=== PATIENT | male | born 1955 | race Caucasian/White ===

== ENCOUNTER → 2018-03-09 | Outpatient (CLI) | payer BC ==
[~2018-03-09] MED LIST: BARIUM SUSPENSION 2.1% (VANILLA SILQ) 450 ML PO ONE; CATHETER FLUSH 10 ML SYR IV PRN; IOHEXOL 350 MG/ML 100 ML (OMNIPAQUE 350) VIAL IV ONE; NS 250 ML (IVPB) BAG IV ONE
--- NOTE | 2018-03-09 12:40 | Diagnostic Imaging Report ---
PROCEDURE: CT abdomen and pelvis with contrast. TECHNIQUE: Multiple contiguous axial images were obtained through the abdomen and pelvis after administration of intravenous contrast. INDICATION: Prostate carcinoma. No prior studies are available for comparison. The lung bases show are clear apart from a granuloma left lower lobe. Liver does show some generalized low density consistent with hepatic steatosis. No discrete liver mass is identified. The gallbladder is surgically absent. The pancreas and spleen are unremarkable. No adrenal mass is identified. The kidneys are unremarkable. Aorta is nonaneurysmal. No central retroperitoneal or mesenteric lymphadenopathy is seen. The small and large bowel loops are normal caliber. No obstruction is seen. There is no ascites. No iliac or inguinal lymphadenopathy is detected. The bladder is unremarkable. Prostate is enlarged. The bony structures are nonacute. No osteoblastic lesions are identified. IMPRESSION: 1. Hepatic steatosis. 2. No abdominal or pelvic lymphadenopathy or evidence of metastatic disease. 3. Prostatomegaly. Dictated by: Dictated on workstation # [id number]
--- NOTE | 2018-03-09 14:46 | Diagnostic Imaging Report ---
INDICATION: Newly diagnosed prostate carcinoma. TECHNIQUE: Patient was administered 27 mCi technetium 99m MDP intravenously and whole body imaging was performed after a three-hour delay. COMPARISON: No prior bone scans are available for comparison. FINDINGS: There is normal uptake of activity by the axial and appendicular skeleton. There is uptake by both kidneys with excretion into the urinary bladder. No abnormal foci of tracer accumulation are seen to suggest osseous metastatic disease. There are some degenerative foci in the upper cervical spine. There is also probable degenerative focus of lower lumbar spine. IMPRESSION: Degenerative changes. There is no scintigraphic evidence of osseous metastatic disease. Dictated by: Dictated on workstation # [id number]
== END ==
LOC: RAD 10:35
PROVIDERS: ATTEND Urology
DX: C61 Malignant neoplasm of prostate (principal); K76.0 Fatty (change of) liver, not elsewhere classified
CPT/HCPCS: 74177; 78306

== ENCOUNTER 2019-11-02 11:53 | Day surgery (SDC) | payer MEDICARE, OTHER ==
[~2019-11-02] VITALS: Ht 177.8 cm; Wt 92.1 kg
[2019-11-02] VITALS (11 sets, daily range): BP systolic 126–181; BP diastolic 82–121
[2019-11-02] MEDS ORDERED: NS IV 500 ML 500 ML IV ONE (12:06)
[2019-11-02] MEDS ORDERED: PANTOPRAZOLE 40 MG (PROTONIX) VIAL IV ONE (12:15)
[2019-11-02 12:24] LABS: BASOPHILS % (AUTO) 0 % (0-10); EOSINOPHILS # (AUTO) 0.1 10^3/uL (0.0-0.3); EOSINOPHILS % (AUTO) 2 % (0-10); HEMATOCRIT 48 % (40-54); HEMOGLOBIN 16.2 G/DL (13.3-17.7); LYMPHOCYTES # (AUTO) 2.7 X 10^3 (1.0-4.0); LYMPHOCYTES % (AUTO) 33 % (12-44); MEAN CORPUSCULAR HEMOGLOBIN 31 PG (25-34); MEAN CORPUSCULAR HGB CONC 34 G/DL (32-36); MEAN CORPUSCULAR VOLUME 92 FL (80-99); MEAN PLATELET VOLUME 9.6 FL (7.4-10.4); MONOCYTES # (AUTO) 0.7 X 10^3 (0.0-1.0); MONOCYTES % (AUTO) 9 % (0-12); NEUTROPHILS # (AUTO) 4.7 X 10^3 (1.8-7.8); NEUTROPHILS % (AUTO) 57 % (42-75); PLATELET COUNT 328 10^3/uL (130-400); RED CELL DISTRIBUTION WIDTH 13.8 % (10.0-14.5); WHITE BLOOD COUNT 8.2 10^3/uL (4.3-11.0)
[2019-11-02] MEDS: NITROGLYCERIN 0.4 MG SL TABS BTL 25'S SL PRN ×2 (12:31→13:30)
--- NOTE | 2019-11-02 12:32 | ED Chest Pain ---
General Stated Complaint: CHEST PAIN,SOB BREATH,L ARM PAIN Source: patient, spouse Exam Limitations: no limitations History of Present Illness Date Seen by Provider: Nov 02, 2019 Time Seen by Provider: 11:53 Initial Comments Patient presents ER by private conveyance from home with chief complaint of chest pain starting just within the last hour. He says he was sitting in bed having a good day drinking coffee and he got choked on the coffee had a coughing fit and passed out momentarily. He says this happened once before but has never EGD with strictures. He is not having chest pain across his chest radiating to her back sides in bilateral upper extremities. He says he feels achy. He took 2 doses of 325 mg aspirin and then came to the ER. She has a history of prostatic cancer status post prostatectomy. He denies any fevers for severe. He rates his pain as an 8 out of 10. He is having no nausea or vomiting. Having normal stools. No diabetes and hyperlipidemia. Does have hypertension. Follow-up with a PERRY Dickinson as well as Dr Borges locally. Allergies and Home Medications Allergies Coded Allergies: No Allergy Information Available (Unverified , 10/30/14) Patient Home Medication List Home Medication List Reviewed: Yes Review of Systems Review of Systems Constitutional: No chills, No fever, No malaise EENTM: No Blurred Vision, No Double Vision Respiratory: Cough, Shortness of Air Cardiovascular: Chest Pain; Denies Irregular Heart Rate, Denies Lightheadedness Gastrointestinal: Denies Constipated, Denies Diarrhea, Denies Nausea Genitourinary: Denies Burning, Denies Discharge Musculoskeletal: No back pain, No joint pain Skin: No pruritus, No rash Psychiatric/Neurological: Denies Headache, Denies Numbness All Other Systems Reviewed Negative Unless Noted: Yes Past Dskygar-Sbpccl-Inbvzy Hx Patient Social History Alcohol Use: Denies Use Recreational Drug Use: Yes Drug of Choice: cannibus Smoking Status: Former Smoker Type Used: Cigarettes Former Smoker, Quit: Oct 13, 2014 Physical Exam Vital Signs Vital Signs - First Documented Capillary Refill : Height, Weight, BMI Height: '" Weight: lbs. oz. kg; BMI Method: General Appearance: WD/WN, Anxious, Mild Distress HEENT: PERRL/EOMI, Pharynx Normal, Moist Mucous Membranes Neck: Full Range of Motion, Normal Inspection, Non Tender, Supple Respiratory: No Chest Non Tender; Lungs Clear, No Accessory Muscle Use, No Respiratory Distress (O2 sats 93% at rest, snoozing), Other (Mild crackles heard on the right base on deep inspiration but not recurrent) Cardiovascular: Regular Rate, Rhythm, No Edema Gastrointestinal: Normal Bowel Sounds, Non Tender, Soft Extremity: Normal Capillary Refill, Normal Inspection Neurologic/Psychiatric: Alert, Oriented x3, No Motor/Sensory Deficits Skin: Normal Color, Warm/Dry Progress/Results/Core Measures Results/Orders Lab Results Laboratory Tests Test 11/02/19 12:13 11/02/19 14:45 Range/Units White Blood Count 8.2 4.3-11.0 10^3/uL Red Blood Count 5.18 4.35-5.85 10^6/uL Hemoglobin 16.2 13.3-17.7 G/DL Hematocrit 48 40-54 % Mean Corpuscular Volume 92 80-99 FL Mean Corpuscular Hemoglobin 31 25-34 PG Mean Corpuscular Hemoglobin Concent 34 32-36 G/DL Red Cell Distribution Width 13.8 10.0-14.5 % Platelet Count 328 130-400 10^3/uL Mean Platelet Volume 9.6 7.4-10.4 FL Neutrophils (%) (Auto) 57 42-75 % Lymphocytes (%) (Auto) 33 12-44 % Monocytes (%) (Auto) 9 0-12 % Eosinophils (%) (Auto) 2 0-10 % Basophils (%) (Auto) 0 0-10 % Neutrophils # (Auto) 4.7 1.8-7.8 X 10^3 Lymphocytes # (Auto) 2.7 1.0-4.0 X 10^3 Monocytes # (Auto) 0.7 0.0-1.0 X 10^3 Eosinophils # (Auto) 0.1 0.0-0.3 10^3/uL Basophils # (Auto) 0.0 0.0-0.1 10^3/uL Prothrombin Time 12.9 12.2-14.7 SEC INR Comment 0.9 0.8-1.4 Activated Partial Thromboplast Time 31 24-35 SEC Sodium Level 145 135-145 MMOL/L Potassium Level 4.1 3.6-5.0 MMOL/L Chloride Level 108 H 98-107 MMOL/L Carbon Dioxide Level 25 21-32 MMOL/L Anion Gap 12 5-14 MMOL/L Blood Urea Nitrogen 14 7-18 MG/DL Creatinine 0.91 0.60-1.30 MG/DL Estimat Glomerular Filtration Rate > 60 BUN/Creatinine Ratio 15 Glucose Level 108 H 70-105 MG/DL Calcium Level 9.1 8.5-10.1 MG/DL Corrected Calcium 8.8 8.5-10.1 MG/DL Magnesium Level 2.1 1.6-2.4 MG/DL Total Bilirubin 0.8 0.1-1.0 MG/DL Aspartate Amino Transf (AST/SGOT) 24 5-34 U/L Alanine Aminotransferase (ALT/SGPT) 35 0-55 U/L Alkaline Phosphatase 106 40-136 U/L Myoglobin 57.7 10.0-92.0 NG/ML Troponin I < 0.028 0.238 H <0.028 NG/ML B-Type Natriuretic Peptide 50.7 <100.0 PG/ML Total Protein 6.8 6.4-8.2 GM/DL Albumin 4.4 3.2-4.5 GM/DL My Orders Orders - BRITTNEY,MIKKI J Cbc With Automated Diff (11/02/19 12:06) Magnesium (11/02/19 12:06) Chest 1 View, Ap/Pa Only (11/02/19 12:06) Ekg Tracing (11/02/19 12:06) Comprehensive Metabolic Panel (11/02/19 12:06) Myoglobin Serum (11/02/19 12:06) Protime With Inr (11/02/19 12:06) Partial Thromboplastin Time (11/02/19 12:06) O2 (11/02/19 12:06) Monitor-Rhythm Ecg Trace Only (11/02/19 12:06) Lipid Panel (11/03/19 06:00) Ed Iv/Invasive Line Start (11/02/19 12:06) BNP (11/02/19 12:06) Troponin I (11/02/19 12:06) Nitroglycerin 0.4 Mg Btl 25's (Nitrostat (11/02/19 12:15) Pantoprazole Injection (Protonix Injecti (11/02/19 12:15) Ed Iv/Invasive Line Start (11/02/19 12:06) Ns Iv 500 Ml (Sodium Chloride 0.9%) (11/02/19 12:06) Troponin I (11/02/19 14:45) Ekg Tracing (11/02/19 13:26) Medications Given in ED Current Medications Medications Dose Ordered Sig/Shadi Route Start Time Stop Time Status Last Admin Dose Admin Nitroglycerin 0.4 mg NEEDED PRN SL 11/02/19 12:15 11/02/19 13:30 0.4 MG Pantoprazole 40 mg ONCE ONCE IV 11/02/19 12:15 11/02/19 12:16 DC 11/02/19 12:31 40 MG Sodium Chloride 500 ml @ 0 mls/hr Q0M ONCE IV 11/02/19 12:06 11/02/19 12:09 DC 11/02/19 12:31 0 MLS/HR Vital Signs/I&O 11/02/19 11/02/19 11:55 11:55 Temp 36.6 Pulse 69 Resp 17 B/P (MAP) 185/115 (138) Pulse Ox 97 O2 Delivery Room Air Room Air Progress Progress Note #1: Time: 12:49 Progress Note Patient was doing fine until he had a choking event which resulted in brief syncope. Vasovagal is very possible. He does have borderline ST elevation one half to one block to 3 and aVF with uncertain significance. No previous EKGs to compare to. No history of coronary disease. He does have diffuse chest pain radiating however reproducible. We did give him nitroglycerin times one and his pain from 8 down to a 5. Is not requesting anything more. He took 2 doses of asp irin prior to arrival. On the monitor without any dysrhythmias. His oxygen sats as she rests. His history of COPD this is likely his baseline. Suspect the initial crackles auscultated is related to atelectasis. Progress Note #2: Time: 13:48 Progress Note Called and discussed the case with Dr. Pelaez and he feels that syncope and chest pain is ominous and recommends observation. He would like serial troponins. He would see the patient. We discussed this case with patient and the patient does not eat here Monday. The chest pain-free at this time. Patient advised her to follow up outpatient. Explaining that there would be risks involved and this including missing a significant coronary or heart events. Patient accepts this risk and would still prefer to go home. He is agreed to wait for a delta troponin at 3 hours and as long she is not having chest pain we will provide for him follow-up in the clinic. We explained that this would be contrary to the musical instrument maker or repairer's advice. Patient accepts this. The first dose of nitroglycerin nearly that his pain. The second dose of nitroglycerin brought his pain down to 110. Could be due to coronary versus esophageal spasm. Initial ECG Impression Date: Nov 02, 2019 Initial ECG Impression Time: 12:16 Initial ECG Rate: 78 Initial ECG Rhythm: Normal Sinus Initial ECG Intervals: QT (493) Initial ECG Impression: Normal, Nonspecific Changes Initial ECG Comparisson: No Previous ECG Available Comment Borderline half to one block elevation in the ST-T wave segments in leads 2, aVF and 3. Diagnostic Imaging Diagonstic Imaging: Xray Plain Films/CT/US/NM/MRI: chest (1v) Comments NAME: [facility]IN[facility] REC#: [id number] PT STATUS: REG ER : 1955 PHYSICIAN: MIKKI LUGO MD ADMIT DATE: 11/02/19/ER Draft Date of Exam:11/02/19 CHEST 1 VIEW, AP/PA ONLY EXAM: CHEST 1 VIEW, AP/PA ONLY INDICATION: Chest pain. COMPARISON: CT chest with IV contrast 10/30/2014. FINDINGS: Normal heart size and central pulmonary vascularity. Mild bibasilar atelectasis. No dense pulmonary consolidation. No pleural effusion or pneumothorax. No acute osseous findings. IMPRESSION: Mild bibasilar atelectasis. Chest otherwise negative. Dictated on workstation # [id number] Dict: 11/02/19 1250 Trans: 11/02/19 1252 [facility] [id number] Interpreted by: MIKE LARIOS MD Electronically signed by: Reviewed: Reviewed by Me Departure Communication (Admissions) Time/Spoke to Admitting Phy: 16:00 Dr Tillman accepts the pt to the Cardiac stepdown. Time/Spoke to Consulting Phy: 14:[address] Pelaez and he accepts consult Impression Primary Impression: Syncope Qualified Codes: R55 - Syncope and collapse Additional Impressions: Choking episode Chest pain at rest Disposition: 01 HOME, SELF-CARE Condition: Stable Admissions Decision to Admit Reason: Admit from ER (General) Decision to Admit/Date: Nov 02, 2019 Time/Decision to Admit Time: 14:00 Departure-Patient Inst. Referrals: RACHEL PELAEZ MD, RACHEL L MD (PCP/Family) Primary Care Physician Patient Instructions: Chest Pain (DC) Add. Discharge Instructions: If you begin to experience worsening chest pain or shortness of air. Do not delay. Call 911 or immediately return to the nearest ER. Stick to a liquid or soft diet for the first day and then increase that as you tolerate it. If you continue to have choking episodes then we would encourage you to return to the ER or follow up with the primary doctor. Monday morning call Dr. Pelaez, musical instrument maker or repairer for close follow-up within the first 1-2 days. Consider taking 1 aspirin daily until you've discussed this with IV your primary doctor or musical instrument maker or repairer. Copy Copies To 1: RAHCEL PELAEZ MD, TITUS J Nov 02, 2019 12:32
[2019-11-02 12:37] LABS: INR 0.9 (0.8-1.4); PROTHROMBIN TIME PATIENT 12.9 SEC (12.2-14.7)
[2019-11-02 12:50] LABS: ALANINE AMINOTRANSFERASE 35 U/L (0-55); ALBUMIN 4.4 GM/DL (3.2-4.5); ALKALINE PHOSPHATASE 106 U/L (40-136); BILIRUBIN,TOTAL 0.8 MG/DL (0.1-1.0); BUN/CREATININE RATIO 15; CALCIUM 9.1 MG/DL (8.5-10.1); CARBON DIOXIDE 25 MMOL/L (21-32); CHLORIDE 108 MMOL/L (98-107); CREATININE SERUM 0.91 MG/DL (0.60-1.30); GFR ESTIMATED > 60; GLUCOSE 108 MG/DL (70-105); MAGNESIUM 2.1 MG/DL (1.6-2.4); POTASSIUM 4.1 MMOL/L (3.6-5.0); SODIUM 145 MMOL/L (135-145); TOTAL PROTEIN 6.8 GM/DL (6.4-8.2)
--- NOTE | 2019-11-02 12:53 | Diagnostic Imaging Report ---
EXAM: CHEST 1 VIEW, AP/PA ONLY INDICATION: Chest pain. COMPARISON: CT chest with IV contrast 10/30/2014. FINDINGS: Normal heart size and central pulmonary vascularity. Mild bibasilar atelectasis. No dense pulmonary consolidation. No pleural effusion or pneumothorax. No acute osseous findings. IMPRESSION: Mild bibasilar atelectasis. Chest otherwise negative. Dictated by: Dictated on workstation # [id number]
--- NOTE | 2019-11-02 13:40 | NUR ---
CARE ASSUMED AT THIS TIME.
--- NOTE | 2019-11-02 13:54 | NUR ---
PT RESTING QUIETLY, NO C/O VOICED AT THIS TIME.
--- NOTE | 2019-11-02 15:46 | NUR ---
PT UPDATED BY THIS RN THAT LAB RESULTS WERE IN ET DR LUGO WOULD BE IN TO TALK W/ HIM SHORTLY. PT VOICED UNDERSTANDING
--- NOTE | 2019-11-02 15:50 | NUR ---
DR LUGO IN TO TALK W/ PT
--- NOTE | 2019-11-02 15:58 | NUR ---
PT VOICED TO THIS RN HE WILL STAY IN THE HOSPITAL AT THIS TIME BUT STATES "I'VE HAD A GOOD LIFE, I'M OK WITH GOING HOME AND DYING."
--- NOTE | 2019-11-02 16:15 | NUR ---
REPORT TO MINH SIEGEL
[2019-11-02] MEDS ORDERED: meTOprolol 5 MG/5 ML (LOPRESSOR) VIAL IV ONE (18:00)
[2019-11-02] MEDS ORDERED: NS IV 1000 ML 1,000 ML IV SCH (18:00)
--- NOTE | 2019-11-02 18:02 | Consultation-Cardiology ---
HPI-Cardiology Cardiology Consultation Date of Consultation 11/02/19 Date of Admission Time Seen by Provider: 17:58 Indication: Syncope HPI 64-year-old gentleman with history of hypertension, was drinking coffee this morning when he choked on the coffee then had a syncopal episode lasted for few seconds and regained consciousness, patient reported having diffuse body ache and chest pain, back pain, left shoulder left arm pain. Came into the emergency room for evaluation and was feeling better then. EKG showed minimal nondiagnostic changes, cardiac enzymes were initially normal, second set was elevated. He denied any previous cardiac history, currently laying down in bed, denied any active pain. Blood pressure is elevated. Reported that he had labile blood pressure during his prostate surgery in the past. Home Medications & Allergies Allergies: Coded Allergies: No Allergy Information Available (Unverified , 10/30/14) Home Medication List Reviewed: Yes UVQ-Qehbnp-Axoldn Hx Patient Social History Marital Status: Employed/Student: employed Alcohol Use: Denies Use Recreational Drug Use: Yes Drug of Choice: cannibus Smoking Status: Former Smoker Type Used: Cigarettes Recent Foreign Travel: No Recent Infectious Disease Expo: No Recent Hopitalizations: No Immunizations Up To Date Tetanus Booster (TDap): Unknown Past Medical History Discussed below Family Medical History Family Medical Hx Noncontributory Review of Systems-General Review of Systems Constitutional: see HPI; No chills; dizziness; No fever, No malaise EENTM: see HPI Respiratory: see HPI; No cough; dyspnea on exertion; No hemoptysis, No orthopnea, No phlegm, No short of breath, No stridor, No wheezing, No other Cardiovascular: see HPI, chest pain; No edema, No Hx of Intervention, No palpitations; syncope; No vascular heart diseas, No other Gastrointestinal: no symptoms reported, see HPI Genitourinary: see HPI Musculoskeletal: no symptoms reported, see HPI; No back pain, No joint pain Skin: see HPI; No pruritus, No rash Psychiatric/Neurological: No Symptoms Reported, See HPI; Denies Headache, Denies Numbness All Other Systems Reviewed Negative Unless Noted: Yes Reviewed Test Results Reviewed Test Results Lab Laboratory Tests Test 11/02/19 12:13 11/02/19 14:45 Range/Units White Blood Count 8.2 4.3-11.0 10^3/uL Red Blood Count 5.18 4.35-5.85 10^6/uL Hemoglobin 16.2 13.3-17.7 G/DL Hematocrit 48 40-54 % Mean Corpuscular Volume 92 80-99 FL Mean Corpuscular Hemoglobin 31 25-34 PG Mean Corpuscular Hemoglobin Concent 34 32-36 G/DL Red Cell Distribution Width 13.8 10.0-14.5 % Platelet Count 328 130-400 10^3/uL Mean Platelet Volume 9.6 7.4-10.4 FL Neutrophils (%) (Auto) 57 42-75 % Lymphocytes (%) (Auto) 33 12-44 % Monocytes (%) (Auto) 9 0-12 % Eosinophils (%) (Auto) 2 0-10 % Basophils (%) (Auto) 0 0-10 % Neutrophils # (Auto) 4.7 1.8-7.8 X 10^3 Lymphocytes # (Auto) 2.7 1.0-4.0 X 10^3 Monocytes # (Auto) 0.7 0.0-1.0 X 10^3 Eosinophils # (Auto) 0.1 0.0-0.3 10^3/uL Basophils # (Auto) 0.0 0.0-0.1 10^3/uL Prothrombin Time 12.9 12.2-14.7 SEC INR Comment 0.9 0.8-1.4 Activated Partial Thromboplast Time 31 24-35 SEC Sodium Level 145 135-145 MMOL/L Potassium Level 4.1 3.6-5.0 MMOL/L Chloride Level 108 H 98-107 MMOL/L Carbon Dioxide Level 25 21-32 MMOL/L Anion Gap 12 5-14 MMOL/L Blood Urea Nitrogen 14 7-18 MG/DL Creatinine 0.91 0.60-1.30 MG/DL Estimat Glomerular Filtration Rate > 60 BUN/Creatinine Ratio 15 Glucose Level 108 H 70-105 MG/DL Calcium Level 9.1 8.5-10.1 MG/DL Corrected Calcium 8.8 8.5-10.1 MG/DL Magnesium Level 2.1 1.6-2.4 MG/DL Total Bilirubin 0.8 0.1-1.0 MG/DL Aspartate Amino Transf (AST/SGOT) 24 5-34 U/L Alanine Aminotransferase (ALT/SGPT) 35 0-55 U/L Alkaline Phosphatase 106 40-136 U/L Myoglobin 57.7 10.0-92.0 NG/ML Troponin I < 0.028 0.238 H <0.028 NG/ML B-Type Natriuretic Peptide 50.7 <100.0 PG/ML Total Protein 6.8 6.4-8.2 GM/DL Albumin 4.4 3.2-4.5 GM/DL Physical Exam Physical Exam Vital Signs Vital Signs - First Documented Capillary Refill : Less Than 3 Seconds Height, Weight, BMI Height: '" Weight: lbs. oz. kg; 27.99 BMI Method: General Appearance: WD/WN, Anxious, Mild Distress Eyes: Bilateral Eye Normal Inspection, Bilateral Eye PERRL, Bilateral Eye EOMI HEENT: PERRL/EOMI, Pharynx Normal, Moist Mucous Membranes Neck: Full Range of Motion, Normal Inspection, Non Tender, Supple Respiratory: No Chest Non Tender; Lungs Clear, No Accessory Muscle Use, No Respiratory Distress (O2 sats 93% at rest, snoozing), Other (Mild crackles heard on the right base on deep inspiration but not recurrent) Cardiovascular: Regular Rate, Rhythm, No Edema Gastrointestinal: Normal Bowel Sounds, Non Tender, Soft Back: Normal Inspection, No CVA Tenderness, No Vertebral Tenderness Extremity: Normal Capillary Refill, Normal Inspection Neurologic/Psychiatric: Alert, Oriented x3, No Motor/Sensory Deficits Skin: Normal Color, Warm/Dry Lymphatic: No Adenopathy A/P-Cardiology Admission Diagnosis Non-ST elevation myocardial infarction Syncope Malignant Hypertension Emphysema Assessment/Plan Non-ST elevation myocardial infarction, elevated troponin level, planning to proceed with cardiac catheterization possible PTCA, procedure was explained in length to the patient on Pros and cons were discussed. Syncope, probably vasovagal, underlying malignant arrhythmia cannot be excluded, we will continue to monitor on telemetry. Hypertension, labile blood pressure, elevated at this time, I'll start Lopressor IV then start oral beta blockers and monitor COPD/emphysema, managed by primary care physician Tobaccoism, stopped smoking about 5 years ago, encouraged to continue with smoking cessation History of prostate surgery. Clinical Quality Measures AMI/AHF: ASA po Prior to arrival: No DVT/VTE Risk/Contraindication: Risk Factor Score Per Nursin RFS Level Per Nursing on Admit: 2=Moderate RACHEL HANSON MD Nov 02, 2019 18:02
--- NOTE | 2019-11-02 18:04 | Cardiac Procedure Note-CS/ASA ---
Pre-Procedure Note Pre-Op Procedure Note H&P Reviewed The H&P was reviewed, patient examined and no changes noted. Date H&P Reviewed: Nov 02, 2019 Time H&P Reviewed: 18:04 Conscious Sedation Pre-Proced Time 18:04 ASA Score 3 For ASA 3 and 4: Consider anesthesia and medical clearance. Also, for patients with a history of failed moderate sedation consider anesthesia. Airway Lungs Heart ASA score ASA 1: a normal healthy patient ASA 2: a patient with a mild systemic disease (mid diabetes, controlled hypertension, obesity x ASA 3: a patient with a severe systemic disease that limits activity (angina, COPD, prior Myocardial infarction) ASA 4: a patient with an incapacitating disease that is a constant threat to life (CHF, renal failure) ASA 5: a moribund patient not expected to survive 24 hrs. (ruptured aneurysm) ASA 6: a declared brain- patient whose organs are being harvested. For emergent operations, add the letter E after the classification Mallampati Classification Grade 3 Sedation Plan Analgesia, Amnesia, Plan communicated to team members, Discussed options with patient/fam, Discussed risks with patient/fam The patient is an appropriate candidate to undergo the planned procedure, sedation, and anesthesia. The patient immediately re-assessed prior to indication. RACHEL HANSON MD Nov 02, 2019 18:04
[2019-11-02] MEDS ORDERED: LIDOCAINE 1% INJ 20 ML 20 ML VIAL ONE (18:39)
[2019-11-02] MEDS ORDERED: HEParin (CATH LAB) 2,000 ML IV ONE (18:40)
[2019-11-02] MEDS ORDERED: VERAPAMIL 5 MG/2 ML (CALAN) VIAL IV ONE (18:40)
[2019-11-02] MEDS ORDERED: HEParin 1000 UNIT/ML (10ML VIAL) FOR BOLUS ONE (18:40)
[2019-11-02] MEDS ORDERED: fentaNYL INJECTION 100 MCG/2 ML AMP ONE (18:40)
[2019-11-02] MEDS ORDERED: NITRO DRIP 25000 MCG/D5W 250 ML IV ONE (18:40)
[2019-11-02] MEDS ORDERED: MIDAZOLAM 5 MG/5 ML (VERSED) VIAL ONE (18:40)
[2019-11-02] MEDS ORDERED: ATROPINE INJECTION 1 MG/10 ML SYR (ABBOTT) ONE (19:46)
[2019-11-02] MEDS ORDERED: ASPIRIN 325 MG (5 GR) TABLET ONE (19:52)
[2019-11-02] MEDS ORDERED: CLOPIDOGREL 300 MG (PLAVIX) TABLET PO ONE (19:53)
--- NOTE | 2019-11-02 20:10 | Cardiac Cath Report ---
Cardiac Cath Report Physician (s)/[facility] [place] (s) Physician RACHEL HANSON MD Pre-Procedure Diagnosis Pre-Procedure Diagnosis: coronary artery disease Post-Procedure Note Procedure Start Date: Nov 02, 2019 Name of Procedure: Left heart catheterization Left ventriculogram Stent to the right coronary artery Findings/Procedure Note PROCEDURE NOTE: 64 years old gentleman with no significant history, admitted with syncope and chest pain, had mildly elevated troponin and mild EKG changes. Decided to proceed with cardiac catheterization possible PTCA. After explaining the procedure to the patient, all pros and cons were explained, all questions were answered. The patient signed the consent and then he was placed on the cardiac catheterization laboratory. Groin was prepped SL fashion local anesthesia was used. Sheath placed in the right radial artery, Newport catheter used advanced to the left ventricular cavity and left ventricular gram was done. Pullback LV to aorta was done then engaged the left coronary system and angiogram was done. I was unable to engage the right coronary system due to the fact that it is anomalous. 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 Decided to proceed with proctitis intervention. Patient received a total of 7000 units of heparin, I used AL guide and was able to engage the right coronary artery but I did not have a full support from the guide I was able to advance the wire and once I achieved the lesion I was unable to cross it and kept losing the guide position after multiple attempts I decided to exchange the wire and the guide I removed the guide and used MP1 and used the same BMW wire I was able to engage in a better situation with that guide and was able to advance the wire smoothly to the distal right coronary artery predilated using 3 x 15 balloon then I proceeded with deployment of Liane 4 x 23 stent, dilated under 19 dragan to 4.3 with excellent results and no residual stenosis. At the end of the procedure the sheath was removed. 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 Tortuous LAD system with mild disease nonobstructive disease otherwise no significant obstructive disease 3. Normal left ventricular size and systolic function estimated ejection fraction 60 percent DISCUSSION AND RECOMMENDATION: Patient was started on aspirin and Plavix, Lipitor, metoprolol and fish oil. We will continue monitor overnight and discharged home in the morning Anesthesia Type: Conscious Sedation Estimated blood loss (mL): 30 ml Contrast Amount: 175 ml Total Radiation Dose: 1109 mGy Post-Procedure Diagnosis Post-operative diagnosis: Non-ST elevation myocardial infarctions Coronary artery disease Hypertension Hyperlipidemia RACHEL HANSON MD Nov 02, 2019 20:10
[2019-11-02] MEDS ORDERED: LORazepam INJ 2 MG/ML (ATIVAN) VIAL IV PRN (20:30)
[2019-11-02] MEDS ORDERED: ACETAMINOPHEN 325 MG TABLET PO PRN (20:30)
[2019-11-02] MEDS ORDERED: ANTACID SUSP 30 ML UDC (MYLANTA) PO PRN (20:30)
[2019-11-02] MEDS ORDERED: MILK OF MAGNESIA 400 MG/5 ML 30 ML UDC PO PRN (20:30)
[2019-11-02] MEDS ORDERED: BENZONATATE 100 MG (TESSALON) CAPSULE PO PRN (20:30)
[2019-11-02] MEDS ORDERED: morphine INJ 4 MG/ML 1 ML (VIAL/SYRINGE) IV PRN (20:30)
[2019-11-02] MEDS ORDERED: MELATONIN 3 MG TABLET PO PRN (20:30)
[2019-11-02] MEDS ORDERED: ONDANSETRON 4 MG/2 ML (SDV) Z0FRAN IV PRN (20:30)
[2019-11-02] MEDS: NS IV 1000 ML 1,000 ML IV SCH (20:42)
[2019-11-02] MEDS ORDERED: lisINopril 20 MG (PRINIVIL) TABLET PO ONE (22:30)
--- NOTE | 2019-11-02 22:30 | NUR ---
THIS RN NOTIFIED DR. HANSON OF PATIENT'S SBP RANGING IN 160-180'S AND DBP RANGING 100-120'S. MOST RECENT BP WAS 160/101. NEW ORDER RECEIVED FOR LISINOPRIL PO 20MG X1 NOW.
[2019-11-03] VITALS: BP 146/99
[2019-11-03 01:00] VITALS: BP 145/95
[2019-11-03 02:00] VITALS: BP 132/89
[2019-11-03 03:00] VITALS: BP 149/108
[2019-11-03 03:44] LABS: BASOPHILS % (AUTO) 0 % (0-10); EOSINOPHILS # (AUTO) 0.1 10^3/uL (0.0-0.3); EOSINOPHILS % (AUTO) 1 % (0-10); HEMATOCRIT 43 % (40-54); HEMOGLOBIN 14.8 G/DL (13.3-17.7); LYMPHOCYTES # (AUTO) 2.1 X 10^3 (1.0-4.0); LYMPHOCYTES % (AUTO) 22 % (12-44); MEAN CORPUSCULAR HEMOGLOBIN 32 PG (25-34); MEAN CORPUSCULAR HGB CONC 34 G/DL (32-36); MEAN CORPUSCULAR VOLUME 92 FL (80-99); MEAN PLATELET VOLUME 9.7 FL (7.4-10.4); MONOCYTES # (AUTO) 0.9 X 10^3 (0.0-1.0); MONOCYTES % (AUTO) 9 % (0-12); NEUTROPHILS # (AUTO) 6.3 X 10^3 (1.8-7.8); NEUTROPHILS % (AUTO) 67 % (42-75); PLATELET COUNT 279 10^3/uL (130-400); RED CELL DISTRIBUTION WIDTH 13.7 % (10.0-14.5); WHITE BLOOD COUNT 9.4 10^3/uL (4.3-11.0)
[2019-11-03 03:55] LABS: ALBUMIN 3.6 GM/DL (3.2-4.5); CHLORIDE 111 MMOL/L (98-107); POTASSIUM 3.9 MMOL/L (3.6-5.0); SODIUM 141 MMOL/L (135-145)
[2019-11-03 03:57] LABS: TOTAL PROTEIN 5.6 GM/DL (6.4-8.2); TRIGLYCERIDES 119 MG/DL (<150); VLDL CHOLESTEROL 24 MG/DL (5-40)
[2019-11-03 03:58] LABS: GLUCOSE 103 MG/DL (70-105)
[2019-11-03 03:59] LABS: BILIRUBIN,TOTAL 0.9 MG/DL (0.1-1.0); CARBON DIOXIDE 22 MMOL/L (21-32)
[2019-11-03 04:00] VITALS: BP 128/86
[2019-11-03 04:01] LABS: ALKALINE PHOSPHATASE 84 U/L (40-136); CREATININE SERUM 0.68 MG/DL (0.60-1.30); GFR ESTIMATED > 60; PHOSPHORUS 2.6 MG/DL (2.3-4.7)
[2019-11-03 04:02] LABS: BUN/CREATININE RATIO 16; CHOLESTEROL 137 MG/DL (< 200)
[2019-11-03 04:03] LABS: HDL CHOLESTEROL 32 MG/DL (40-60)
[2019-11-03 04:04] LABS: ALANINE AMINOTRANSFERASE 32 U/L (0-55); MAGNESIUM 1.9 MG/DL (1.6-2.4)
[2019-11-03] MEDS: NS IV 1000 ML 1,000 ML IV SCH (06:27)
[2019-11-03 08:00] VITALS: BP 133/90
[2019-11-03] MEDS ORDERED: OMEGA 3 (FISH OIL) 1000 MG CAP PO SCH (08:00)
[2019-11-03] MEDS ORDERED: CLOPIDOGREL 75 MG (PLAVIX) TABLET PO SCH (09:00)
[2019-11-03] MEDS ORDERED: ASPIRIN E.C. 81 MG (ECOTRIN) TAB PO SCH (09:00)
[2019-11-03] MEDS ORDERED: ASPI-983 PO (10:23)
[2019-11-03] MEDS ORDERED: CLOP75TA28 PO (10:23)
[2019-11-03] MEDS ORDERED: LISI-556 PO (10:23)
[2019-11-03] MEDS ORDERED: ATOR20TA66 PO (10:23)
[2019-11-03] MEDS ORDERED: MTP25TSR PO (10:23)
[2019-11-03] MEDS ORDERED: OMG1KC PO (10:23)
[2019-11-03] MEDS ORDERED: PANT40SU PO (10:24)
--- NOTE | 2019-11-03 10:24 | Discharge Inst-Post CATH ---
Discharge Inst-CATH/EP Problems Reviewed?: Yes Post Cardiac Cath/EP D/C Inst Follow Up/Plan Appointment with Dr. Pelaez's office in 2-4 weeks <b>CARDIAC CATH/EP PROCEDURE DISCHARGE INSTRUCTIONS</b> ACTIVITY * Go Home directly and rest. * Limit activity of the leg (or wrist if it was used) for 7 days including aerobics, swimming, jogging, bicycling, etc. * Restrict stair-climbing for 7 days if possible, if not, climb up with your non-cath leg, then bring together on the same step. * Avoid lifting, pushing, pulling or excessive movement of the affected extremity for 7 days. * Customary sexual activity may be resumed after 2 days-use caution not to use a position that strains or causes pain to the affected extremity. * No driving for 24 hours. * NO SMOKING. * Avoid straining for bowel movements for 7 days. * Gentle walking on level ground is allowed. * Returning to work will depend on the type of procedure and the results. Your doctor will discuss this with you. CALL YOUR DOCTOR FOR ANY OF THE FOLLOWING: *If bleeding from the puncture site occurs- Apply gentle pressure to site with clean cloth and call your doctor or EMS. * If a knot or lump forms under the skin, increases in size, or causes pain. * If bruising appears to be worsening or moving further down your leg instead of disappearing. * Temperature above 101 F. CARE OF YOUR GROIN INCISION; * Bruising or purple discoloration of the skin near the puncture site is common. * You may shower only, no bathtub bathing for 5 days. Be careful to avoid slipping as your leg may feel stiff. * If a closure device was used on your femoral artery, please see the attached guide regarding care of the device and your leg. * Leave dressing on FOR 24 hours. CARE OF YOUR WRIST INCISION; * Bruising or purple discoloration of the skin near the puncture site is common. * You may shower. * DO NOT submerge wrist. * Leave dressing on FOR 24 hours. RACHEL PELAEZ MD Nov 03, 2019 10:24 am
--- NOTE | 2019-11-03 10:27 | Cardiology Progress Note ---
Subjective Date Seen by Provider: Nov 03, 2019 Time Seen by Provider: 10:25 Subjective/Events-last exam Patient is feeling better, no further episodes of chest pain. Groin is healing well Review of Systems General: No Chills, No Night Sweats, No Fatigue, No Malaise, No Appetite, No Other HEENT: No Head Aches, No Visual Changes, No Eye Pain, No Ear Pain, No Dysphasi a, No Sinus Congestion, No Post Nasal Drip, No Sore Throat, No Other Pulmonary: No Dyspnea, No Cough, No Pleuritic Chest Pain, No Other Cardiovascular: No: Chest Pain, Palpitations, Orthopnea, Paroxysmal Noc. Dyspnea, Edema, Lt Headedness, Other Objective-Cardiology Exam Last Set of Vital Signs Vital Signs 11/03/19 08:20 Pulse Ox 97 O2 Delivery Room Air Capillary Refill : Less Than 3 Seconds I&O Intake and Output 11/03/19 00:00 Intake Total 900 ml Output Total 375 ml Balance 525 ml Intake Oral 400 ml IV Total 500 ml Output Urine Total 375 ml Daily Weight Change No No General: Alert, Oriented X3, Cooperative HEENT: Atraumatic, PERRLA Neck: Supple, No JVD, No Thyromegaly Lungs: Clear to Auscultation, Normal Air Movement Heart: Regular Rate, Normal S1, Normal S2, No Murmurs Abdomen: Normal Bowel Sounds, Soft, No Tenderness, No Hepatosplenomegaly, No M asses Extremities: No Clubbing, No Cyanosis, No Edema, Normal Pulses, No Tende rness/Swelling Skin: No Rashes, No Breakdown, No Significant Lesion Neuro: Normal Gait, Normal Speech, Strength at 5/5 X4 Ext, Normal Tone, Sensation Intact Psych/Mental Status: Mental Status NL, Mood NL Results Lab Laboratory Tests 11/02/19 12:13 11/03/19 03:36 A/P-Cardiology Admission Diagnosis Non-ST elevation myocardial infarction Syncope Malignant Hypertension Emphysema Assessment/Plan Non-ST elevation myocardial infarction, status post cardiac catheterization with complex intervention to the right coronary artery with deployment of Liane 4 x 23 extended to 4.3 mm with excellent results. Syncope, probably vasovagal, underlying malignant arrhythmia secondary to ischemia cannot be excluded, patient was started on beta blockers. Continue to monitor as an outpatient Hypertension, started on Toprol and lisinopril, monitor as an outpatient Mild hyperlipidemia, LDL 102, started on Lipitor 20 mg daily and fish oil. 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 Clinical Quality Measures AMI/AHF: ASA po Prior to arrival: No DVT/VTE Risk/Contraindication: Risk Factor Score Per Nursin RFS Level Per Nursing on Admit: 2=Moderate RACHEL HANSON MD Nov 03, 2019 10:27 am
--- NOTE | 2019-11-03 10:54 | Discharge Summary ---
Discharge Summary Hospital Course Was the Problem List Reviewed?: Yes Hospital Course Date of Admission: Nov 02, 2019 at 16:00 Admission Diagnosis : Family Physician/Provider: Ebonie Borges MD Date of Discharge: 11/03/19 Discharge Diagnosis: Syncope, NSTEMI with stent placement Hospital Course: see SS HPI Labs and Pending Lab Test: Laboratory Tests 11/02/19 12:13: White Blood Count 8.2, Red Blood Count 5.18, Hemoglobin 16.2, Hematocrit 48, Mean Corpuscular Volume 92, Mean Corpuscular Hemoglobin 31, Mean Corpuscular Hemoglobin Concent 34, Red Cell Distribution Width 13.8, Platelet Count 328, Mean Platelet Volume 9.6, Neutrophils (%) (Auto) 57, Lymphocytes (%) (Auto) 33, Monocytes (%) (Auto) 9, Eosinophils (%) (Auto) 2, Basophils (%) (Auto) 0, Neutrophils # (Auto) 4.7, Lymphocytes # (Auto) 2.7, Monocytes # (Auto) 0.7, Eosinophils # (Auto) 0.1, Basophils # (Auto) 0.0, Prothrombin Time 12.9, INR Comment 0.9, Activated Partial Thromboplast Time 31, Sodium Level 145, Potassium Level 4.1, Chloride Level 108H, Carbon Dioxide Level 25, Anion Gap 12, Blood Urea Nitrogen 14, Creatinine 0.91, Estimat Glomerular Filtration Rate > 60, BUN/Creatinine Ratio 15, Glucose Level 108H, Calcium Level 9.1, Corrected Calcium 8.8, Magnesium Level 2.1, Total Bilirubin 0.8, Aspartate Amino Transf (AST/SGOT) 24, Alanine Aminotransferase (ALT/SGPT) 35, Alkaline Phosphatase 106, Myoglobin 57.7, Troponin I < 0.028, B-Type Natriuretic Peptide 50.7, Total Protein 6.8, Albumin 4.4 11/02/19 14:45: Troponin I 0.238H 11/02/19 21:06: Troponin I 4.594*H 11/03/19 01:14: Troponin I 5.022*H 11/03/19 03:36: White Blood Count 9.4, Red Blood Count 4.66, Hemoglobin 14.8, Hematocrit 43, Mean Corpuscular Volume 92, Mean Corpuscular Hemoglobin 32, Mean Corpuscular Hemoglobin Concent 34, Red Cell Distribution Width 13.7, Platelet Count 279, Mean Platelet Volume 9.7, Neutrophils (%) (Auto) 67, Lymphocytes (%) (Auto) 22, Monocytes (%) (Auto) 9, Eosinophils (%) (Auto) 1, Basophils (%) (Auto) 0, Neutrophils # (Auto) 6.3, Lymphocytes # (Auto) 2.1, Monocytes # (Auto) 0.9, Eosinophils # (Auto) 0.1, Basophils # (Auto) 0.0, Sodium Level 141, Potassium Level 3.9, Chloride Level 111H, Carbon Dioxide Level 22, Anion Gap 8, Blood Urea Nitrogen 11, Creatinine 0.68, Estimat Glomerular Filtration Rate > 60, BUN/Creatinine Ratio 16, Glucose Level 103, Calcium Level 8.0L, Corrected Calcium 8.3L, Phosphorus Level 2.6, Magnesium Level 1.9, Total Bilirubin 0.9, Aspartate Amino Transf (AST/SGOT) 38H, Alanine Aminotransferase (ALT/SGPT) 32, Alkaline Phosphatase 84, Troponin I 4.321*H, Total Protein 5.6L, Albumin 3.6, Triglycerides Level 119, Cholesterol Level 137, LDL Cholesterol Direct 102, VLDL Cholesterol 24, HDL Cholesterol 32L Home Meds Active Protonix (Pantoprazole Sodium) 40 Mg Granpkt. 40 Mg PO DAILY Lisinopril 5 Mg Tablet 5 Mg PO DAILY Aspirin EC (Aspirin) 81 Mg Tablet.dr 81 Mg PO DAILY Metoprolol Succinate 25 Mg Tab.er.24h 25 Mg PO DAILY Fish Oil 1,000 mg Capsule ([place]prise 3 Polyunsat Fatty Acids) 1,000 Mg Cap 1,000 Mg PO BID WITH MEALS Atorvastatin Calcium 20 Mg Tablet 20 Mg PO HS Clopidogrel (Clopidogrel Bisulfate) 75 Mg Tablet 75 Mg PO DAILY Assessment/Pt Instructions DR Pelaez as ordered Discharge Planning: <30 minutes discharge planning Discharge Instructions Discharge Diet: Cardiac Diet Pneumonia Vaccine Order Indica: Yes Discharge Physical Examination Vital Signs Vital Signs Date Time Temp Pulse Resp B/P (MAP) Pulse Ox O2 Delivery O2 Flow Rate FiO2 11/03/19 08:20 97 Room Air 11/03/19 08:00 36.9 68 18 133/90 (104) General Appearance: No Apparent Distress, WD/WN Allergies: Coded Allergies: No Allergy Information Available (Unverified , 10/30/14) Discharge Summary Date of Admission Nov 02, 2019 at 16:00 Date of Discharge Discharge Date: Nov 03, 2019 Clinical Quality Measures AMI/AHF: ASA po Prior to arrival: No DVT/VTE Risk/Contraindication: Risk Factor Score Per Nursin RFS Level Per Nursing on Admit: 2=Moderate TY LUIS DO Nov 03, 2019 10:54
--- NOTE | 2019-11-03 16:29 | Short Stay Summary-Hospitalist ---
History of Present Illness HPI/Chief Complaint CC: Syncope with NSTEMI s/p stent placement per Dr Pelaez 11/02/19 HPI: This is a 64yoWM clinic patient of Dr Borges and [facility] who presented to the ER with syncope and collapse after drinking coffee. Patient was found to have elevated troponin so Dr Pelaez assessed the patient in need of cardiac cath and subsequent placed stent due to coronary stenosis. Patient is currently ready for DC. Source: patient, RN/MD Exam Limitations: no limitations Date Seen 11/03/19 Time Seen by a Provider: 10:00 Attending Physician Alisha Tillman MD PCP Ebonie Borges MD Referring Physician Date of Admission Nov 02, 2019 at 16:00 Home Medications & Allergies Home Medications Reviewed patient Home Medication Reconciliation performed by pharmacy medication reconciliations photovoltaic testing technician and/or nursing. Patients Allergies have been reviewed. Allergies Allergies Coded Allergies No Allergy Information Available (Unverified10/30/14) Past Sakjcbp-Dllird-Tqsdzp Hx Past Med/Social Hx: Reviewed Nursing Past Med/Soc Hx, Reviewed and Corrections made Patient Social History Marrital Status: Employed/Student: employed Alcohol Use: Denies Use Recreational Drug Use: Yes Drug of Choice: cannibus Smoking Status: Former Smoker Former Smoker, Quit: Oct 13, 2014 Type Used: Cigarettes Recent Foreign Travel: No Contact w/other who traveled: No Recent Hopitalizations: No Recent Infectious Disease Expo: No Immunizations Up To Date Tetanus Booster (TDap): Unknown Pediatric: Yes Seasonal Allergies Seasonal Allergies: No Past Medical History Surgeries: Gallbladder, Prostatectomy Genitourinary: Prostate Problems Cancer: Prostate What Type of Treatment Did You: Surgical Intervention History of Blood Disorders: No Review of Systems Constitutional: see HPI, malaise, weakness Cardiovascular: chest pain Physical Exam Physical Exam Vital Signs Vital Signs - First Documented Capillary Refill : Less Than 3 Seconds Height, Weight, BMI Height: '" Weight: lbs. oz. kg; 27.99 BMI Method: General Appearance: WD/WN, Anxious, Mild Distress Eyes: Bilateral Eye Normal Inspection, Bilateral Eye PERRL, Bilateral Eye EOMI HEENT: PERRL/EOMI, Pharynx Normal, Moist Mucous Membranes Neck: Full Range of Motion, Normal Inspection, Non Tender, Supple Respiratory: No Chest Non Tender; Lungs Clear, No Accessory Muscle Use, No Respiratory Distress (O2 sats 93% at rest, snoozing), Other (Mild crackles heard on the right base on deep inspiration but not recurrent) Cardiovascular: Regular Rate, Rhythm, No Edema Gastrointestinal: Normal Bowel Sounds, Non Tender, Soft Back: Normal Inspection, No CVA Tenderness, No Vertebral Tenderness Extremity: Normal Capillary Refill, Normal Inspection Neurologic/Psychiatric: Alert, Oriented x3, No Motor/Sensory Deficits Skin: Normal Color, Warm/Dry Lymphatic: No Adenopathy Results Results/Procedures Labs Laboratory Tests 11/02/19 12:13 11/03/19 03:36 Patient resulted labs reviewed. Short Stay Diagnosis Discharge Diagnosis-Short Stay Admission Diagnosis Syncope Final Discharge Diagnosis Syncope NSTEMI requiring cath and stent placement Prostate cancer hx s/p prostatectomy Conclusion Plan Plan: DC home Diagnosis/Problems Diagnosis/Problems (1) NSTEMI (non-ST elevated myocardial infarction) (2) Stented coronary artery (3) Syncope Status: Acute Qualifiers: Qualified Codes: R55 - Syncope and collapse (4) Choking episode Status: Acute Clinical Quality Measures AMI/AHF: ASA po Prior to arrival: No DVT/VTE Risk/Contraindication: Risk Factor Score Per Nursin RFS Level Per Nursing on Admit: 2=Moderate TY LUIS DO Nov 03, 2019 16:29
== END 2019-11-03 11:30 | disposition home or self-care (01) ==
LOC: EDUNIT# 11:53 → ER 11:54 → CSD 16:00 → UNDOADMOB 16:00 → CSD 17:20 → CATH 17:20 → CSD 18:27 → UNDODISOB 11-03 11:30 → CATH 11-03 11:30
PROVIDERS: ATTEND Family Medicine
DX: I21.4 Non-ST elevation (NSTEMI) myocardial infarction (principal); I10 Essential (primary) hypertension; I25.10 Atherosclerotic heart disease of native coronary artery without angina pectoris; E78.5 Hyperlipidemia, unspecified; J43.9 Emphysema, unspecified; Z79.82 Long term (current) use of aspirin; Z79.02 Long term (current) use of antithrombotics/antiplatelets; Z79.51 Long term (current) use of inhaled steroids; Z79.899 Other long term (current) drug therapy; Z95.5 Presence of coronary angioplasty implant and graft; Z87.891 Personal history of nicotine dependence; Z85.46 Personal history of malignant neoplasm of prostate; Z90.89 Acquired absence of other organs
CPT/HCPCS: 71045; 80053 ×2; 80061; 83735 ×2; 83874; 83880; 84100; 84484 ×2; 85025 ×2; 85027; 85347; 85610; 85730; 93005 ×2; 93041; 93458; 96374; 99284; C1725; C1769; C1874; C1887 ×2; C9600; 36415